=== PATIENT | female | born 2000 | race Caucasian/White ===

== ENCOUNTER 2023-01-17 11:15 | Inpatient (IN) ==
[2023-01-17 11:34] LABS: ABS Basophils 0.1 10^3/uL (0.0-0.1); ABS Eosinophils 0.2 10^3/uL (0.0-0.5); ABS Lymphocytes 2.1 10^3/uL (1.0-4.8); ABS Monocytes 0.5 10^3/uL (0.0-0.9); ABS Neutrophils 6.9 10^3/uL (1.5-7.6); ABS Nucleated RBC 0.01 10^3/ul; Eosinophil % 1.9 %; Hematocrit 37.3 % (35-45); Hemoglobin 12.2 g/dL (11.5-14.3); Lymphocyte % 21.6 %; Mean Corpuscular Hemoglobin 24.7 pg (27-33); Mean Corpuscular Hgb Conc 32.7 g/dL (31-36); Mean Corpuscular Volume 75.4 fL (80-97); Mean Platelet Volume 7.2 fL (7.5-11.2); Nucleated Red Blood Cells % 0.1 /100 WBC (0.0-0.4); Platelet Count 349 10^3/uL (150-450); Red Blood Count 4.94 10^6/uL (3.63-4.92); Red Cell Distribution Width 15.8 % (12-17); White Blood Count 9.8 10^3/uL (3.8-11.8)
[2023-01-17 11:41] LABS: INR 1.05 (0.88-1.18)
[2023-01-17 12:01] LABS: High Sens Troponin Baseline < 3 pg/mL (<15)
[2023-01-17 12:33] LABS: ALT 16 U/L (7-52); AST 14 U/L (13-39); Albumin 4.2 g/dL (3.2-5.2); Albumin/Globulin Ratio 1.4 (1-3); Alkaline Phosphatase 61 U/L (35-149); Anion Gap 9 mmol/L (2-16); Blood Urea Nitrogen 9 mg/dL (6-24); CO2 Carbon Dioxide 22 mmol/L (22-32); Calcium 9.3 mg/dL (8.6-10.3); Chloride 109 mmol/L (101-111); Creatinine, Serum 0.61 mg/dL (0.51-0.95); Globulin 3.1 g/dL (2-4); Glucose 131 mg/dL (70-100); Sodium 140 mmol/L (135-145); Total Protein 7.3 g/dL (6.4-8.9)
[2023-01-17 13:00] LABS: High Sensitivity Troponin 1 Hr < 3 pg/mL (<15)
[2023-01-17 13:17] LABS: Magnesium 1.8 mg/dL (1.9-2.7)
[2023-01-17 13:23] LABS: Lipase < 10 U/L (11.0-82.0)
[2023-01-17 15:49] LABS: HCG Pregnancy < 0.60 mIU/mL
[2023-01-17 16:21] LABS: Urine Appearance Cloudy; Urine Bilirubin Negative (Negative); Urine Blood Negative (Negative); Urine Color Yellow; Urine Glucose Negative (Negative); Urine Ketones Negative (Negative); Urine Nitrite Negative (Negative); Urine Protein Negative (Negative); Urine Specific Gravity 1.013 (1.002-1.030); Urine Urobilinogen Negative (Negative)
[2023-01-17 16:25] LABS: Urine Bacteria 1+ (Absent); Urine Red Blood Cell Trace(0-2/hpf) (Absent); Urine Squamous Epithelial Cell Present (Absent); Urine White Blood Cell Trace(0-5/hpf) (Absent)
[2023-01-17 16:51] LABS: Urine Benzodiazepine Screen None Detected (None Detect); Urine Cannabinoids Screen None Detected (None Detect); Urine Opiates Screen None Detected (None Detect)
[2023-01-17 17:25] LABS: Acetaminophen < 15 mcg/mL; Alcohol, S < 13 mg/dL (<13)
[2023-01-17 17:28] LABS: TSH Ultra Thyroid Stim Horm 1.33 mcIU/mL (0.34-5.60)
[2023-01-17] MEDS ORDERED: Lidocaine 4% CREAM (LMX) 5 GM TUBE TOPICAL ONE (18:28)
[2023-01-17] MEDS ORDERED: Sulfamethox/Trimethoprim DS TAB 800/160 mg PO ONE (19:23)
[2023-01-17] MEDS ORDERED: Al Hydrox/Mg Hydrox/Simet LIQ 30 ML UDC PO PRN (21:03)
[2023-01-18 08:12] LABS: HDL Cholesterol 39.9 mg/dL
[2023-01-18] MEDS: Diclofenac Sod EC 25 mg TAB PO SCH ×2 (09:30→21:24)
[2023-01-18] MEDS: Vitamin THERAPEUTIC TAB PO SCH (09:30)
[2023-01-18] MEDS: Fluticasone NASAL SPRAY 50MCG 16 gm SPRAY BTL BOTH NARES SCH (09:30)
[2023-01-18] MEDS: Sulfamethox/Trimethoprim DS TAB 800/160 mg PO SCH ×2 (10:20→21:24)
[2023-01-19] MEDS: Sulfamethox/Trimethoprim DS TAB 800/160 mg PO SCH ×2 (10:15→20:34)
[2023-01-19] MEDS: Vitamin THERAPEUTIC TAB PO SCH (10:15)
[2023-01-19] MEDS: Fluticasone NASAL SPRAY 50MCG 16 gm SPRAY BTL BOTH NARES SCH (10:15)
[2023-01-19] MEDS: Diclofenac Sod EC 25 mg TAB PO SCH ×2 (10:15→20:34)
[2023-01-20] MEDS: Diclofenac Sod EC 25 mg TAB PO SCH ×2 (08:59→21:05)
[2023-01-20] MEDS: Vitamin THERAPEUTIC TAB PO SCH (08:59)
[2023-01-20] MEDS: Sulfamethox/Trimethoprim DS TAB 800/160 mg PO SCH ×2 (09:00→21:05)
[2023-01-20] MEDS: Fluticasone NASAL SPRAY 50MCG 16 gm SPRAY BTL BOTH NARES SCH (09:09)
[2023-01-21] MEDS: Diclofenac Sod EC 25 mg TAB PO SCH (09:19)
[2023-01-21] MEDS: Fluticasone NASAL SPRAY 50MCG 16 gm SPRAY BTL BOTH NARES SCH (09:19)
[2023-01-21] MEDS: Sulfamethox/Trimethoprim DS TAB 800/160 mg PO SCH (09:20)
[2023-01-21] MEDS: Vitamin THERAPEUTIC TAB PO SCH (09:20)
[2023-01-21 10:14] VITALS: BP 149/104
== END 2023-01-21 11:45 | disposition home or self-care (01) | DRG 880 ==
LOC: ED 11:15 → EDHOLD 20:52 → BSU 21:29
PROVIDERS: ADMIT Psychiatry & Neurology Psychiatry; ATTEND Psychiatry & Neurology Psychiatry